=== PATIENT | male | born 1955 | race Caucasian/White ===

== ENCOUNTER 2018-11-15 10:00 | Outpatient (RCR) | payer OTHER, SELFPAY ==
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
--- NOTE | 2018-10-18 08:44 | HP.PTREVAL ---
RANDY GONZALES, It has been my pleasure to treat BERNABE ANDRADE over the last 11 visits for Left TKR 09/11/18. Please see the progress note below for an update on the physical therapy plan of care! Subjective: Patient reports that he is not as good as he wanted to be. The pain is dull and achy all over- with sharp spots. Worst: 5-6/10 Best: 2/10. Sleep: better but not great. Uses a cane only for if he stumbles- has lost his balance every 2-3 days. Does not use the cane at home. Patient feels that he is 60% back to normal. Can't bend the knee as far as he wants to be able to and wants to be able to stand for longer periods of time- about 30 min at this time. Objective/Function: Posture: FH, RS, increased kyphosis- can correct with verbal cues but does not maintain. Gait: slightly antalgic- decreased heel/toe pattern secondary to decreased ROM in the left knee Can sit with knee bent without incidence HR/TR: able with UE A. SLS: 4 seconds. Observation of Incision: no s/s of infection. Stairs: reciprocal with 2 HR ROM: 10-78 degrees with pain at end range. Palpation: tender to touch throughout knee- not tender in calf. Strength: Ankle: 5/5, Knee: 4+/5 throughout available range. Hip: 4-/5 Core: fair Plan Plan: Cont with POC 3x a week for 3 weeks- FOCUS ON ROM Goals Goal 1:: Patient will be I with HEP and progression Goal Time Frame: 4-6 Weeks Goal Progress: Progressing Goal 2:: Patient will demo 0-115 degrees of ROM in the left knee Goal Time Frame: 4-6 Weeks Goal Progress: Progressing Goal 3:: Patient will ambulate >300 feet with a normalized gait pattern Goal Time Frame: 4-6 Weeks Goal Progress: Progressing Goal 4:: Patient will asc/desc 8 stairs recip with 1 HR Goal Time Frame: 4-6 Weeks Goal Progress: Progressing Anticipated Interventions Patient/Client Instruction: Educate patient on: Benefits of Fitness Program Therapeutic Exercise to Include: Strength training, Endurance training, Balance training, Agility training, Body mechanics, Postural training, Flexibilty training, Gait and locomotor training, via Neurocom Balance Mas, Active ROM, Dynamic Lumbar Stabilization For the Purpose of:: To improve ability to perform ADL's Manual Therapy Techniques to Include: Massage, Mobilization, Passive ROM, Soft tissue mobilization For the Purpose of:: To increase ROM TENS: Yes Cryotherapy (ice pack, ice massage): Yes Thermo therapy (hot pack): Yes Ultrasound (thermal/non thermal): No Please do not hesitate to contact me at [phone] by phone or if you have questions or concerns regarding this new plan of care! Sincerely, DO DaughertyT
--- NOTE | 2019-02-26 14:34 | HP.PT.NRP ---
HP - Discharge Summary (1) - Patient Information BERNABE ANDRADE was seen in my office for initial evaluation on 09/18/18. The following Plan of Care was established for this patient: Initial Frequency: 3x /Week Initial Duration: 4 Weeks - Anticipated Interventions Patient/Client Instruction: Educate patient on: Benefits of Fitness Program Therapeutic Exercise to Include: Strength training, Endurance training, Balance training, Agility training, Body mechanics, Postural training, Flexibilty training, Gait and locomotor training, via Neurocom Balance Mas, Active ROM, Dynamic Lumbar Stabilization For the Purpose of:: To improve ability to perform ADL's Manual Therapy Techniques to Include: Massage, Mobilization, Passive ROM, Soft tissue mobilization For the Purpose of:: To increase ROM TENS: Yes Cryotherapy (ice pack, ice massage): Yes Thermo therapy (hot pack): Yes Ultrasound (thermal/non thermal): No This patient was last seen in our office . Pertinent comments regarding their Physical therapy will appear below: Patient has not attended PT in over 6 weeks and is appropriate for d/c and to return to MD for further evaluation as needed. At this point I will be discontinuing this patient from physical therapy. I would be happy to see this patient again in the future if found appropriate by the physician. Thank you! Clare Juares DPT
== END 2018-11-15 19:00 | disposition home or self-care (01) ==
LOC: PT 10:00
DX: M25.562 Pain in left knee (principal); E11.9 Type 2 diabetes mellitus without complications; I10 Essential (primary) hypertension
CPT/HCPCS: 97016; 97110; 97140; 97161; 97164